=== PATIENT | female | born 2005 | race Caucasian/White ===

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

== ENCOUNTER 2025-04-25 19:01 | Emergency (ER) | payer MEDICAID ==
[~2025-04-25] VITALS: Ht 157.5 cm; Wt 110.8 kg
[2025-04-25 19:32] VITALS: TEMP 98.3
[2025-04-25 19:37] LABS: BASOPHILS # (AUTO) 0.1 X10'3 (0-0.2); LYMPHOCYTES # (AUTO) 3.8 X10'3 (1.1-4.8)
[2025-04-25 19:39] LABS: BASOPHILS % (AUTO) 0.8 % (0-1); EOSINOPHILS # (AUTO) 0.2 X10'3 (0-0.9); EOSINOPHILS % (AUTO) 2.1 % (0-6); HEMATOCRIT 40.8 % (35.0-45.0); HEMOGLOBIN 13.4 g/dl (12.0-16.0); MEAN CORPUSCULAR HEMOGLOBIN 26.8 PG (27.0-31.0); MEAN CORPUSCULAR HGB CONC 32.8 g/dL (33.0-36.5); MEAN CORPUSCULAR VOLUME 81.9 FL (78-98); MONOCYTES # (AUTO) 0.6 X10'3 (0-0.9); MONOCYTES % (AUTO) 7.7 % (2-12); NEUTROPHILS # (AUTO) 3.1 X10'3 (1.8-7.7); NEUTROPHILS % (AUTO) 40.4 % (42-75); PLATELET COUNT 174 X10'3 (140-440); RED BLOOD COUNT 4.98 X10'6 (4.20-5.60); RED CELL DISTRIBUTION WIDTH 15.8 % (11.5-14.5); WHITE BLOOD COUNT 7.8 X10'3 (4.5-11.0)
[2025-04-25 19:49] LABS: ALANINE AMINOTRANSFERASE 40 U/L (12-78); ALKALINE PHOSPHATASE 78 IU/L (20-180); ANION GAP 13 (8-16); ASPARTATE AMINO TRANSFERASE 22 U/L (10-37); BILIRUBIN,TOTAL 0.2 MG/DL (0.1-1.0); BLOOD UREA NITROGEN 6 MG/DL (7-18); BUN/CREATININE RATIO 9.5 (10.0-20.0); CHLORIDE 110 MMOL/L (99-107); CREATININE 0.63 MG/DL (0.40-0.90); GLUCOSE 87 MG/DL (70-104); LIPASE 55 U/L (16-77); POTASSIUM 3.4 MMOL/L (3.5-5.1); SODIUM 146 MMOL/L (135-145); TOTAL CARBON DIOXIDE 22.7 MMOL/L (24-32); eCRCL 113 ML/MIN; eGFR > 90 ML/MIN
[2025-04-25 20:12] LABS: BILIRUBIN,URINE NEGATIVE (Neg); CLARITY,URINE SLIGHTLY CLOUDY (Clear); COLOR,URINE YELLOW (Yellow); GLUCOSE, URINE NEGATIVE (Neg); KETONES,URINE NEGATIVE (Neg); LEUKOCYTE ESTERASE ,URINE SMALL (Neg); OCCULT BLOOD,URINE MODERATE (Neg); PH,URINE 6.5 (4.8-8.0); PROTEIN,URINE NEGATIVE (Neg); UROBILINOGEN,URINE 0.2 E.U/dL (0.2-1.0)
[2025-04-25 20:13] LABS: UA COLLECTION TYPE CLN CATCH MIDSTREAM
[2025-04-25 20:14] LABS: NITRITES, URINE NEGATIVE (Neg)
[2025-04-25 20:15] LABS: URINE HCG NEGATIVE (NEG)
[2025-04-25 20:22] LABS: BACTERIA,URINE 2+ /HPF (Neg)
[2025-04-25 20:24] LABS: SQUAMOUS EPITHELIAL CELL,UR FEW /LPF (FEW)
--- NOTE | 2025-04-25 21:37 | Physician Documentation ---
History of Present Illness Chief Complaint: Abdominal Pain Stated Complaint: ABD PAIN Time Seen by MD: 21:21 Primary Medical Doctor: Dr. Altamirano [facility] This is a 19-year-old female with history of PCOS who presents with one day of left lower quadrant abdominal pain, patient had reported to triage nurse right flank pain though on my questioning patient reported pain was in her left lower quadrant. Patient reports no fever or dysuria. Patient reports no other acute symptoms or concerns. Medication Reconciliation Allergies: Coded Allergies: Penicillins (Verified Allergy, Unknown, 05/08/21) RASH, SWELLING Scheduled Cefuroxime Axetil (Cefuroxime), 1 TAB PO Q12H Ketoconazole (Ketoconazole), 1 APPLIC TOP DAILY Past Medical History Past Medical History: Seizures, Asthma, Anemia, *ENDOCRINE*, *MUSCULOSKELETAL*, Bipolar Past Surgical History: no surgical history, orthopedic surgeries Drug Use: none Lives In: Home Review of Systems ROS Left lower quadrant abdominal pain as stated above in the HPI, otherwise all systems are reviewed and negative. Physical Exam Vital Signs: Temperature: 98.3, Source: Temporal, Heart Rate: 100, Respiratory Rate: 18, BP: 120/87, Pulse Oximetry: 98, Weight: 110.800 Oxygen Flow Rate: 0 Physical Exam VITALS: Reviewed and as above. GENERAL: Alert, nontoxic appearing, no apparent distress. RESPIRATORY: No increased work of breathing, no respiratory distress, speaking in full clear sentences, lungs clear in all nieto CV: Regular rate and rhythm no murmur BACK: No CVA tenderness GI: Tenderness to palpation left lower quadrant. Otherwise soft, nondistended, no rebound, no guarding, bowel sounds present SKIN: Skin in crease of pannus erythematous Progress Results/Orders Results/Orders Vital Signs 04/25/25 04/25/25 19:32 21:11 Temp 98.3 Pulse 100 Resp 18 B/P (MAP) 120/87 Pulse Ox 98 O2 Flow Rate 0 Laboratory Tests Test 04/25/25 19:27 04/25/25 19:34 White Blood Count 7.8 Red Blood Count 4.98 Hemoglobin 13.4 Hematocrit 40.8 Mean Corpuscular Volume 81.9 Mean Corpuscular Hemoglobin 26.8 L Mean Corpuscular Hemoglobin Concent 32.8 L Red Cell Distribution Width 15.8 H Platelet Count 174 Mean Platelet Volume 10.0 Neutrophils (%) (Auto) 40.4 L Lymphocytes (%) (Auto) 49.0 Monocytes (%) (Auto) 7.7 Eosinophils (%) (Auto) 2.1 Basophils (%) (Auto) 0.8 Neutrophils # (Auto) 3.1 Lymphocytes # (Auto) 3.8 Monocytes # (Auto) 0.6 Eosinophils # (Auto) 0.2 Basophils # (Auto) 0.1 CBC Comment Sodium Level 146 H Potassium Level 3.4 L Chloride Level 110 H Carbon Dioxide Level 22.7 L Anion Gap 13 Blood Urea Nitrogen 6 L Creatinine 0.63 Estimated GFR/1.73 m2 > 90 BUN/Creatinine Ratio 9.5 L Glucose Level 87 Calcium Level 9.0 Total Bilirubin 0.2 Aspartate Amino Transf (AST/SGOT) 22 Alanine Aminotransferase (ALT/SGPT) 40 Alkaline Phosphatase 78 Total Protein 8.0 Albumin 4.0 Globulin 4.0 Albumin/Globulin Ratio 1.0 L Lipase 55 Chemistry Comments Urine Specimen Description Cln catch midstream Urine Color Yellow Urine Clarity Slightly cloudy Urine pH 6.5 Urine Specific [place] 1.020 Urine Protein Negative Urine Glucose (UA) Negative Urine Ketones Negative Urine Occult Blood Moderate H Urine Nitrite Negative Urine Bilirubin Negative Urine Urobilinogen 0.2 Urine Leukocyte Esterase Small H Urine RBC 3-10 Urine WBC 5-10 H Urine Squamous Epithelial Cells Few Urine Bacteria 2+ Urine Culture Indicated Indicated Volume Urine Centrifuged 10 ml Urine HCG, Qualitative Negative Urine Comment Microbiology Date/Time Source Procedure Growth Status 04/25/25 20:24 Urine Clean Catch Midstream Urine Culture - Preliminary Culture received. Resulted EKG/XRAY/CT/US/VASC/MRI Ultrasound : Impression PELVIC ULTRASOUND WITH TRANSABDOMINAL IMAGING CLINICAL HISTORY: LLQ Abd Pain COMPARISON: None TECHNIQUE: Transabdominal grayscale, color-flow Doppler, and duplex Doppler was performed. FINDINGS: Suboptimal imaging windows due to underdistended urinary bladder. The uterus measures approximately 6.7 x 3.6 x 4.8 cm. The endometrium is not clearly visualized. The right ovary measures 3.4 x 2.5 x 2.6 cm. The left ovary measures approximately 4.6 x 2.5 x 4.1 cm. Both ovaries demonstrate dopplerable blood flow on spectral analysis. IMPRESSION: Limited examination. No acute findings as visualized. If there is persistent clinical concern, CT is recommended to further evaluate. Electronically Signed by:ZACH STEELE MD Date & Time: 04/26/2546 Dictated by: ZACH STEELE MD Dictation date and time: 04/26/2546 Medical Decision Making Findings This 19-year-old female with history of PCOS presented with left lower quadrant pain though interestingly patient reported to nursing staff right flank pain on triage though did not report this when questioned during history and physical indicating left lower quadrant pain. Patient's lab work was relatively benign though urinalysis did demonstrate evidence of urinary tract infection, the remainder of labs did not demonstrate evidence of systemic infection, metabolic or electrolyte derangement. An ultrasound of patient's abdomen was obtained, though technical sales support specialist did state that study was of relatively low quality due to patient being unable to fill her bladder due to need for frequent urination. Per initial report from technical sales support specialist ovaries had flow, and there was no evidence free fluid or cysts. Initial report from technical sales support specialist was verified by radiology report. Cause of patient's abdominal pain is not entirely clear though physical exam did not demonstrate evidence of significant pain on palpation to suggest emergent intra-abdominal process. Patient vital signs stable and appropriate for outpatient follow up. Patient provided strict return to care precautions which she verbalized understanding of. Differential Dx:Considerations: Include: Appendicitis, Cholangitis, Cholelithasis, Constipation, Diverticular disease, Esophagitis, Gastritis/PUD, Inflammatory BD, Ischemic bowel, Ovarian cyst/torsion, Pancreatitis, PID, Trauma, intraabdominal, Urinary obstruction, Urolithiasis, Other (Ectopic ) Departure Disposition: HOME / SELF CARE / HOMELESS Impression: Primary Impression: Acute urinary tract infection Additional Impression: Abdominal pain Qualified Codes: R10.32 - Left lower quadrant pain Condition: Improved Discharge Instructions: Abdominal Pain (Nonspecific), Urinary Tract Infection, Adult Additional Instructions: The source of your abdominal pain is unclear, however your urinalysis did indicate you have a urinary tract infection which may explain your abdominal pain. Please use the prescribed antibiotic for urinary tract infection, please use the prescribed cream for the yeast infection on your belly. Please follow up with your primary care provider in the next few days. Please return to the emergency department for any new or worsening concerning symptoms. Referrals: NO PRIMARY CARE PROVIDER (PCP) Prescriptions Cefuroxime Axetil (Cefuroxime) 500 Mg Tablet 1 TAB PO Q12H for 5 Days, #10 TAB 0 Refills Prov: DIXIE MCKEON 04/25/25 Ketoconazole (Ketoconazole) 2 % Cream..g. 1 APPLIC TOP DAILY for 7 Days, #15 GM 0 Refills apply to affected area(s) Prov: DIXIE MCKEON 04/25/25 Education Educated: Patient Educated regarding: diagnosis, treatment, prognosis, need for follow up Signature Scribe Signature: No scribe Attestation: The note accurately reflects work and decisions made by me.FRANSISCO Ramírez 04/26/25 02:22 DIXIE MCKEONP Apr 25, 2025 21:37
[2025-04-25] MEDS: ketorolac trometh 15mg/ml vial 15 MG/ML ML IM ONE (22:02)
[2025-04-25 23:34] VITALS: BP 121/78; PULSE 78; RESP 15; O2SAT 100
[2025-04-25] MEDS ORDERED: KETO15CR2 TOP (23:35)
[2025-04-25] MEDS ORDERED: CEFU500T66 PO (23:35)
--- NOTE | 2025-04-26 00:50 | RADIOLOGY REPORT ---
PELVIC ULTRASOUND WITH TRANSABDOMINAL IMAGING CLINICAL HISTORY: LLQ Abd Pain COMPARISON: None TECHNIQUE: Transabdominal grayscale, color-flow Doppler, and duplex Doppler was performed. FINDINGS: Suboptimal imaging windows due to underdistended urinary bladder. The uterus measures approximately 6.7 x 3.6 x 4.8 cm. The endometrium is not clearly visualized. The right ovary measures 3.4 x 2.5 x 2.6 cm. The left ovary measures approximately 4.6 x 2.5 x 4.1 c m. Both ovaries demonstrate dopplerable blood flow on spectral analysis. IMPRESSION: Limited examination. No acute findings as visualized. If there is persistent clinical concern, CT i s recommended to further evaluate.
== END 2025-04-25 23:44 | disposition home or self-care (01) ==
LOC: ER 19:02
DX: N39.0 Urinary tract infection, site not specified (principal); J45.909 Unspecified asthma, uncomplicated; Z88.0 Allergy status to penicillin
CPT/HCPCS: 76856; 80053; 81001; 81025; 83690; 85025; 87088; 93976; 96372; 99285; J1885

== ENCOUNTER 2025-06-25 20:15 | Emergency (ER) | payer MEDICAID ==
[~2025-06-25] VITALS: Ht 157.5 cm; Wt 102.0 kg
[~2025-06-25 20:15] MED LIST: CEFU500T66 PO; KETO15CR2 TOP
[2025-06-25 21:35] LABS: MEAN PLATELET VOLUME 10.0 FL (7.4-10.4); RED CELL DISTRIBUTION WIDTH 15.6 % (11.5-14.5)
[2025-06-25 21:49] LABS: CREATININE 0.65 MG/DL (0.40-0.90); TOTAL CARBON DIOXIDE 21.6 MMOL/L (24-32); eCRCL 109 ML/MIN; eGFR > 90 ML/MIN
[2025-06-25 22:14] LABS: URINE HCG NEGATIVE (NEG)
[2025-06-25 22:15] LABS: LEUKOCYTE ESTERASE ,URINE NEGATIVE (Neg); NITRITES, URINE POSITIVE (Neg); OCCULT BLOOD,URINE LARGE (Neg)
[2025-06-25 22:21] LABS: UA COLLECTION TYPE CLN CATCH MIDSTREAM
[2025-06-25 22:22] LABS: SQUAMOUS EPITHELIAL CELL,UR FEW /LPF (FEW)
[2025-06-26 01:20] VITALS: BP 143/86
--- NOTE | 2025-06-26 02:38 | Physician Documentation ---
History of Present Illness Chief Complaint: Abdominal Pain Stated Complaint: BODY PAIN/ANXIETY Time Seen by MD: 02:37 OK to notify your PCP?: Yes Primary Medical Doctor: Dr. Altamirano Source: patient, RN/MD, RN notes reviewed, old records Mode of Arrival: POV Exam Limitations: no limitations HPI This patient is a 19 y/o female who presents to ED for anxiety attack. Patient states one hour prior to arrival, she was upset and had a panic attack. During this panic attack, she states she had abdominal pain, her whole body "froze up" and she became short of breath. Patient told her mom who took her to the ER. Denies nausea, vomiting, or diarrhea. Denies any urinary symptoms including any burning, pain with urination, or vaginal discharge. Patient denies history of anxiety attacks and states she had one because she has been grieving the loss of a loved one. Patient denies any other associated symptoms at this time. Patient denies any other alleviating or exacerbating factors. Medication Reconciliation Allergies: Coded Allergies: Penicillins (Verified Allergy, Unknown, 06/25/25) >5 years, rash, treatment required, PEN-FAST 4 Scheduled Cefuroxime Axetil (Cefuroxime), 1 TAB PO Q12H Ketoconazole (Ketoconazole), 1 APPLIC TOP DAILY Phenazopyridine HCl (Pyridium), 1 TAB PO Q8H Sulfamethoxazole/Trimethoprim (Bactrim Ds Tablet), 1 TAB PO Q12H Past Medical History Past Medical History: Seizures, Asthma, Anemia, *ENDOCRINE*, *MUSCULOSKELETAL*, Bipolar Past Surgical History: no surgical history, orthopedic surgeries Smoking Status: Never smoker Alcohol Use: None Drug Use: none Lives In: Home Review of Systems All Other Systems at this time: Reviewed and Negative Physical Exam Vital Signs: RN Vital Signs have been reviewed: Yes, Temperature: 97.0, Source: Oral, Heart Rate: 90, Respiratory Rate: 16, BP: 143/86, Pulse Oximetry: 97, Weight: 102.000 Physical Exam General: The patient is well developed, well nourished, nontoxic appearing and is in no acute distress. Skin: [place], warm and dry with no rashes. HEENT: Head was normocephalic and atraumatic. Eyes - pupils equal, round, reactive to light and accommodation. Extraocular movements were intact. Conjunctivae were nonicteric. The mouth and oropharynx were clear with moist mucous membranes. There were no pharyngeal exudates or erythema. Neck: Supple and nontender. There was no jugular venous distention, lymphadenopathy, thyromegaly or masses. Chest: Clear to auscultation bilaterally without wheezes, rales or rhonchi. No accessory muscle use. No dullness to percussion. Heart: Rate regular and rhythmic. S1, S2. No murmurs. Palpation of the chest wall was normal. No rubs or thrills. Abdomen: Suprapubic tenderness to palpation. Abdomen is otherwise soft and nondistended. Positive bowel sounds. No guarding or rebound. No hepatosplenomegaly or palpable masses. Extremities: No cyanosis, clubbing or edema. The patient moves all extremities. Pulses were equal and symmetric. Neurologic: Motor and sensation grossly intact. A & O x4. Psychologic: The patient was oriented to person, place and time. Progress Results/Orders Reviewed/noted all lab results: Yes Results/Orders Orders - RIANA HERNANDEZ MD Straight Cath For Urine Sample (06/25/25 21:17) Cult Urine + [address] (06/25/25 22:21) Completed Orders - RIANA HERNANDEZ MD Hcg, Ur Ql (06/25/25 21:17) Cbc/Diff (06/25/25 21:17) Lipase (06/25/25 21:17) CMP (06/25/25 21:17) Ua W/Microscopic, Cult If Ind (06/25/25 21:45) Vital Signs 06/25/25 06/25/25 06/25/25 06/25/25 20:39 21:40 22:00 23:15 Temp 96.8 96.8 96.8 Pulse 110 108 108 93 Resp 15 16 16 12 B/P (MAP) 126/85 149/65 (93) 149/65 (93) 130/83 (99) Pulse Ox 98 99 99 97 06/25/25 06/26/25 06/26/25 23:46 00:47 01:20 Temp 97.0 97.0 Pulse 92 90 Resp 16 16 16 B/P (MAP) 143/86 (105) 143/86 (105) Pulse Ox 98 97 Laboratory Tests Test 06/25/25 21:27 06/25/25 21:45 White Blood Count 9.1 Red Blood Count 4.96 Hemoglobin 13.7 Hematocrit 41.3 Mean Corpuscular Volume 83.3 Mean Corpuscular Hemoglobin 27.6 Mean Corpuscular Hemoglobin Concent 33.1 Red Cell Distribution Width 15.6 H Platelet Count 221 Mean Platelet Volume 10.0 Neutrophils (%) (Auto) 59.7 Lymphocytes (%) (Auto) 32.9 Monocytes (%) (Auto) 6.6 Eosinophils (%) (Auto) 0.2 Basophils (%) (Auto) 0.6 Neutrophils # (Auto) 5.5 Lymphocytes # (Auto) 3.0 Monocytes # (Auto) 0.6 Eosinophils # (Auto) 0.0 Basophils # (Auto) 0.1 CBC Comment Sodium Level 140 Potassium Level 3.5 Chloride Level 105 Carbon Dioxide Level 21.6 L Anion Gap 13 Blood Urea Nitrogen 4 L Creatinine 0.65 Estimated GFR/1.73 m2 > 90 BUN/Creatinine Ratio 6.2 L Glucose Level 84 Calcium Level 9.5 Total Bilirubin 0.5 Aspartate Amino Transf (AST/SGOT) 22 Alanine Aminotransferase (ALT/SGPT) 28 Alkaline Phosphatase 84 Total Protein 8.8 H Albumin 4.3 Globulin 4.5 H Albumin/Globulin Ratio 1.0 L Lipase 36 Chemistry Comments Urine Specimen Description Cln catch midstream Urine Color Yellow Urine Clarity Clear Urine pH 6.0 Urine Specific [place] 1.015 Urine Protein 100 H Urine Glucose (UA) Negative Urine Ketones Trace H Urine Occult Blood Large H Urine Nitrite Positive H Urine Bilirubin Small Urine Urobilinogen 0.2 Urine Leukocyte Esterase Negative Urine RBC 0-2 Urine WBC 5-10 H Urine Squamous Epithelial Cells Few Urine Bacteria 3+ Urine Culture Indicated Indicated Volume Urine Centrifuged 10 ml Urine HCG, Qualitative Negative Urine Comment Microbiology Date/Time Source Procedure Growth Status 06/25/25 22:21 Urine Clean Catch Midstream Urine Culture - Preliminary Culture received. Resulted Re-Evaluation Re-Evaluation : Re-Evaluation: Improved Progress Patient was seen and examined. Patient is given reassurance. Patient was having some suprapubic discomfort she is morbidly obese. Patient was having some anxiety complaints however laboratory work suggested urinary tract infection. She was treated for both given reassurance and discharged home. Laboratory CBC WBCs 9.1 hemoglobin hematocrit were within normal limits no left shift. Chemistry showed some mild acidosis with a CO2 of 21.6 otherwise chemistries within normal limits. LFTs within normal limits lipase within normal limits. HCG is negative. Urinalysis however shows a specific gravity of 1.015. With proteinuria, trace ketones large occult blood. Positive nitrates bilirubin small. Leukocyte esterase is negative however RBCs 0-2 WBCs 5-10 few squamous epithelial cells and 3+ bacteria. Most likely a simple UTI. Patient was given Ativan Bactrim and Pyridium. Patient was then prescribed Bactrim and Pyridium and discharged home. Continuous bus driver/monitor interpretation shows sinus tachycardia heart rate 110, abnormal, my interpretation. At time of discharge patient's heart rate was 90s, normal, my interpretation. Pulse oximetry monitor interpretation shows normal oxygenation at 98% room air, normal, my interpretation. Medical Decision Making Additional info obtained from: old records Differential Dx:Considerations: Include: Pancreatitis, PID, Porphyria, Urinary obstruction, Urinary tract infection, Urolithiasis, Other Departure Time of Disposition: 02:47 Disposition: HOME / SELF CARE / HOMELESS Impression: Primary Impression: UTI (urinary tract infection) Qualified Codes: N30.00 - Acute cystitis without hematuria Additional Impression: Anxiety Condition: Stable Discharge Instructions: Urinary Tract Infection, Adult Additional Instructions: Take medications as prescribed. Return to ER for vomiting or high fevers. Otherwise follow up with your regular doctor for re-evaluation. Referrals: NO PRIMARY CARE PROVIDER (PCP) Prescriptions Phenazopyridine HCl (Pyridium) 100 Mg Tablet 1 TAB PO Q8H for urinary discomfort for 2 Days, #6 TAB 0 Refills Prov: RIANA HERNANDEZ MD 06/26/25 Sulfamethoxazole/Trimethoprim (Bactrim Ds Tablet) 800 Mg-160 Mg Tablet 1 TAB PO Q12H for 7 Days, #14 TAB Prov: RIANA HERNANDEZ MD 06/26/25 Education Educated: Patient Educated regarding: diagnosis, treatment, need for follow up Signature Scribe Signature: Scribed for Riana Hernandez MD by Patsy Barreto 06/26/25 02:47 Attestation: The note accurately reflects work and decisions made by me.Riana Hernandez MD 06/26/25 02:38 RIANA HERNANDEZ MD Jun 26, 2025 02:38
[2025-06-26] MEDS ORDERED: PHEN-824 PO (02:45)
[2025-06-26] MEDS ORDERED: SULF1TAB49 PO (02:45)
[2025-06-26] MEDS: sulfamethoxazole/trimethoprim DS (800/160mg) tablet PO ONE (02:58)
[2025-06-26] MEDS: phenazopyridine 100mg tablet PO ONE (02:58)
[2025-06-26 03:08] VITALS: PULSE 100; RESP 14; TEMP 97; O2SAT 97
== END 2025-06-26 03:04 | disposition home or self-care (01) ==
LOC: ER 20:15
DX: N39.0 Urinary tract infection, site not specified (principal); F41.0 Panic disorder [episodic paroxysmal anxiety]; J45.909 Unspecified asthma, uncomplicated; Z88.0 Allergy status to penicillin
CPT/HCPCS: 36415; 80053; 81001; 81025; 83690; 85025; 87088; 99285